=== PATIENT | female | born 2000 | race Caucasian/White ===

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

== ENCOUNTER 2022-09-08 02:09 | Emergency (ER) | payer OTHER ==
[~2022-09-08] VITALS: Ht 157.5 cm; Wt 65.8 kg
[2022-09-08 02:17] VITALS: BP 132/88
== END 2022-09-08 04:15 | disposition home or self-care (01) ==
LOC: ER 02:09
DX: S60.111A Contusion of right thumb with damage to nail, initial encounter (principal); W23.0XXA Caught, crushed, jammed, or pinched between moving objects, initial encounter
CPT/HCPCS: 11740; 73140; 99283-25

== ENCOUNTER → 2025-02-16 | Emergency (ER) | payer SELFPAY ==
[~2025-02-16] VITALS: Ht 157.5 cm; Wt 56.7 kg
[2025-02-16 14:18] VITALS: BP 149/103
== END ==
LOC: ER 14:14
DX: M25.511 Pain in right shoulder (principal); Z59.89 Other problems related to housing and economic circumstances
CPT/HCPCS: 73000